=== PATIENT | female | born 1975 | race Caucasian/White ===

== ENCOUNTER 2022-10-17 08:07 | Emergency (ER) | payer OTHER ==
[~2022-10-17] VITALS: Ht 170.2 cm; Wt 102.5 kg
[2022-10-17 08:21] VITALS: BP 132/82; TEMP 98.1; O2SAT 100
[2022-10-17] MEDS ORDERED: CLOT12CR TP (08:35)
[2022-10-17] MEDS ORDERED: FLUC100T8 PO (08:35)
== END 2022-10-17 08:55 | disposition home or self-care (01) ==
LOC: ER 08:10
DX: B35.4 Tinea corporis (principal); T50.995A Adverse effect of other drugs, medicaments and biological substances, initial encounter; I10 Essential (primary) hypertension; E03.9 Hypothyroidism, unspecified; Z79.899 Other long term (current) drug therapy; Z90.49 Acquired absence of other specified parts of digestive tract; Y92.89 Other specified places as the place of occurrence of the external cause

== ENCOUNTER 2024-08-08 11:17 | Emergency (ER) | payer OTHER ==
[~2024-08-08] VITALS: Ht 170.2 cm; Wt 95.3 kg
[~2024-08-08 11:17] MED LIST: CLOT12CR TP; FLUC100T8 PO
[2024-08-08 12:00] LABS: PLATELET COUNT (AUTO) 281 K/uL (150-450); RED BLOOD CELL COUNT(AUTO) 4.55 MIL/uL (4.0-5.2); RED CELL DISTRIBUTION WIDTH 13.1 % (11.5-15.0); WHITE BLOOD COUNT (AUTO) 9.1 K/uL (4.3-11.0)
[2024-08-08 12:11] LABS: CALCIUM, SERUM 9.2 mg/dL (8.5-10.1); CREATININE 1.1 mg/dL (0.6-1.3); SODIUM SERUM 138 mmol/L (136-145); UREA NITROGEN, BLOOD 7 mg/dL (7-18)
[2024-08-08 12:16] LABS: ASPARTATE AMINOTRANSFERASE 21 U/L (15-37); TOTAL PROTEIN, SERUM 7.9 g/dL (6.4-8.2)
[2024-08-08 18:03] VITALS: BP 128/69; TEMP 98.1; O2SAT 99
== END 2024-08-08 17:30 | disposition home or self-care (01) ==
LOC: ER 11:29
DX: R07.89 Other chest pain (principal); I10 Essential (primary) hypertension; E03.9 Hypothyroidism, unspecified; I44.4 Left anterior fascicular block; Z90.710 Acquired absence of both cervix and uterus; Z79.899 Other long term (current) drug therapy
CPT/HCPCS: 36415; 71045-TC; 80048-TC; 80076-TC; 83735-TC; 84484-TC; 85025-TC; 85378-TC